=== PATIENT | female | born 1990 | race American Indian/Alaskan Native ===

== ENCOUNTER 2018-05-27 05:41 | Inpatient (IN) | payer OTHER ==
[2018-05-27] MEDS ORDERED: AMPICILLIN/NS 2 GM/100 ML 2 GM/100 ML BAG IV ONE ×2 (06:52→06:53)
[2018-05-27] MEDS ORDERED: BRETHINE SUB-Q PRN (06:53)
[2018-05-27] MEDS ORDERED: SUBLIMAZE IV PRN (06:53)
[2018-05-27] MEDS ORDERED: MINERAL OIL PO PRN (06:53)
[2018-05-27] MEDS ORDERED: XYLOCAINE 2% INFILTRATI ONE ×3 (06:53→18:44)
[2018-05-27] MEDS ORDERED: BRETHINE IVP PRN (06:53)
[2018-05-27] MEDS ORDERED: LACTATED RINGERS 1,000 ML IV SCH ×3 (07:00→08:00)
[2018-05-27] MEDS ORDERED: PITOCin/NS 20 UNIT/1000ML DRIP 20 UNITS/1,000 ML BAG IV SCH (07:00)
[2018-05-27] MEDS ORDERED: STADOL IV PRN (07:37)
[2018-05-27] MEDS ORDERED: PITOCin/NS 30 UNIT/500ML 30 UNITS/500 ML BAG IV SCH ×2 (08:00)
[2018-05-27 08:17] LABS: Hemoglobin 10.4 gm/dl (10.1-14.3); Mean Corpuscular HGB Conc 34 % (30-34); Mean Corpuscular Volume 89 fl (79-97); Platelet Count 287 K/mm3 (140-440); Red Blood Count 3.49 M/mm3 (3.65-5.03); Red Cell Distribution Width 14.2 % (13.2-15.2)
--- NOTE | 2018-05-27 08:42 | History and Physical Report ---
History of Present Illness Date of examination: 05/27/18 Date of admission: 05/27/18 Chief complaint: Ctxs & Pressure History of present illness: 27yo G 4 P 1 0 2 1 @ 38 weeks 6 days here with c/o UCs & pelvic pressure since 03:00. She reports +FMs but denies VB or LOF. She is a [facility] patient. No records available. Per pt, her course was significant for new diagnosis of herpes. No history of outbreaks and no prodromal symptoms. She is on valtrex for suppression.. GBS positive. 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 denies: smoking, alcohol abuse, prescription drug abuse, IV drug use - Obstetrical History Expected Date of Delivery: 06/04/18 Actual Gestation: 38 Week(s) 6 Day(s) : 4 Para: 1 Hx # Term Pregnancies: 1 Number of Pregnancies: 0 Spontaneous Abortions: 0 Induced : 2 Number of Living Children: 1 Medications and Allergies Allergies Allergy/AdvReac Type Severity Reaction Status Date / Time No Known Allergies Allergy Verified 05/27/18 06:15 Home Medications Medication Instructions Recorded Confirmed Last Taken Type Vit No.138/Folic/Dha 1 tab PO DAILY 05/27/18 05/27/18 05/26/18 History [Alive Gummy] valACYclovir [Valtrex] 1 tab PO DAILY 05/27/18 05/27/18 05/26/18 History Active Meds: Active Medications Butorphanol Tartrate (Stadol) 1 mg IV Q2H PRN PRN Reason: Pain, Moderate (4-6) Ephedrine Sulfate (Ephedrine Sulfate) 10 mg IV Q2M PRN PRN Reason: Hypotension Fentanyl (Sublimaze) 100 mcg IV Q2H PRN PRN Reason: Labor Pain Ampicillin Sodium (Ampicillin/Ns 1 Gm/50 Ml) 1 gm in 50 mls @ 100 mls/hr IV Q4HR RHONDA; Protocol Oxytocin/Sodium Chloride (Pitocin/Ns 20 Unit/1000ml Drip) 20 units in 1,000 mls @ 125 mls/hr IV DIRECT RHONDA Lactated Ringer's (Lactated Ringers) 1,000 mls @ 125 mls/hr IV DIRECT RHONDA Oxytocin/Sodium Chloride (Pitocin/Ns 30 Unit/500ml) 30 units in 500 mls @ 1 mls/hr IV TITR RHONDA; Protocol Oxytocin/Sodium Chloride (Pitocin/Ns 30 Unit/500ml) 30 units in 500 mls @ 2 mls/hr IV TITR RHONDA; Protocol Mineral Oil (Mineral Oil) 30 ml PO QHS PRN PRN Reason: Constipation Terbutaline Sulfate (Brethine) 0.25 mg SUB-Q ONCE PRN PRN Reason: Hyperstimulation/Hypertonicity Terbutaline Sulfate (Brethine) 0.25 mg IVP ONCE PRN PRN Reason: Hyperstimulation/Hypertonicity Review of Systems All systems: negative - Vital Signs Vital signs: Vital Signs Pulse Pulse Ox 107 H 98 05/27/18 06:05 05/27/18 06:05 Temp Pulse Resp BP Pulse Ox 98.6 F 95 H 20 124/63 99 05/27/18 06:06 05/27/18 07:15 05/27/18 06:06 05/27/18 06:32 05/27/18 07:15 - Obstetrical FHR: auscultation normal, category 1 FHR comments: baseline 130, moderate variability, 15x15 accels, no decels Uterine Contraction Monitor Mode: External Cervical Dilatation: 5.5 (per RN) Cervical Effacement Percentage: 90 (per RN) station: -1 (per RN) Uterine Contraction Frequency (min): 3-7 Uterine Contraction Pattern: Regular Results Result Diagrams: 05/27/18 06:42 Abnormal lab results 05/27/18 Range/Units 06:42 WBC 11.6 H (4.5-11.0) K/mm3 RBC 3.49 L (3.65-5.03) M/mm3 All other labs normal. Assessment and Plan - Patient Problems (1) 38 weeks gestation of Current Visit: Yes Status: Acute (2) Active labor at term Current Visit: Yes Status: Acute Plan to address problem: Admit to L&D with routine labor orders Start ampicillin for GBS prophylaxis AROM/Pitocin for labor augmentation, if indicated Anticipate vaginal delivery
[2018-05-27 10:22] LABS: Hepatitis C Virus Antibody Non-Reactive (NonReactive)
[2018-05-27] MEDS: AMPICILLIN/NS 1 GM/50 ML 1 GM/50 ML BAG IV SCH ×2 (11:26→16:19)
--- NOTE | 2018-05-27 19:18 | Procedure Note ---
OB Delivery Note - Delivery Date of Delivery: 05/27/18 (1820) Surgeon: KEENAN MCHUGH (ANNA) [employer] Detailer: CHARLOTTE ARVIZU (JOSHM) Estimated blood loss: other (450 cc) - Vaginal Delivery position: OA Intrapartum events: none Delivery induction: none Delivery augmentation: rupture of membranes Delivery monitor: external FHT, external uterine Route of delivery: (1820) Delivery placenta: spontaneous (1835) Delivery cord: 3 umbilical vessels Episiotomy: none Delivery laceration: 2nd degree Delivery repair: vicryl (3.[address]) Anesthesia: local Delivery comments: Arrived to room with pt complete and ready to push. Delivered viable male infant without difficulty. Cried spontaneously, and placed on maternal chest. Cord clamped by CNM after 3 mins. Placenta delivered spontaneously, johnathon pt requested to keep placenta, consent signed. Second degree laceration repaired without difficulty. Mother and baby in stable condition. - Infant A at 1 minute: 8 at 5 minutes: 9 Gender: Male (Weight: 3649 gms (8 lbs, 1 oz))
[2018-05-27] MEDS ORDERED: PHENERGAN PO PRN (19:21)
[2018-05-27] MEDS ORDERED: DULCOLAX PR PRN (19:21)
[2018-05-27] MEDS ORDERED: LANSINOH TP PRN (19:21)
[2018-05-27] MEDS ORDERED: TYLENOL PO PRN (19:21)
[2018-05-27] MEDS ORDERED: BENADRYL PO PRN (19:21)
[2018-05-27] MEDS ORDERED: PHENERGAN PR PRN (19:21)
[2018-05-27] MEDS ORDERED: TUCKS PAD TP PRN (19:21)
[2018-05-27] MEDS ORDERED: NORCO 5/325 PO PRN (19:21)
[2018-05-27] MEDS ORDERED: ZOFRAN IV PRN (19:21)
[2018-05-27] MEDS ORDERED: MILK OF MAGNESIA PO PRN (19:21)
[2018-05-27] MEDS ORDERED: DERMOPLAST TP PRN (19:57)
[2018-05-27] MEDS ORDERED: SODIUM CHLORIDE FLUSH SYRINGE 10 ML IV SCH (20:00)
[2018-05-27] MEDS: FEOSOL PO SCH (23:07)
[2018-05-27] MEDS: IBUPROFEN PO SCH (23:08)
[2018-05-28] MEDS: IBUPROFEN PO SCH ×3 (06:34→21:46)
[2018-05-28 07:51] LABS: Hematocrit 20.3 % (30.3-42.9)
--- NOTE | 2018-05-28 09:01 | Progress Note ---
Assessment and Plan - Patient Problems (1) (normal spontaneous vaginal delivery) Onset Date: 05/28/18 Current Visit: Yes Status: Resolved Plan to address problem: A: S/P - PPD #1 Doing well Asymptomatic anemia - stable P: May go home tomorrow. (2) Acute blood loss anemia Onset Date: 05/28/18 Current Visit: Yes Status: Resolved Subjective - Subjective Date of service: 05/28/18 Principal diagnosis: s/p - PPD #1 Interval history: Pt is feeling well without complaints. Bleeding improved. Patient reports: appetite normal, voiding normally, pain well controlled, flatus, ambulating normally, no dizzy ambulation, no nauseated [place]: doing well, nursing well Objective - Vital Signs Latest vital signs: Vital Signs Temp Pulse Resp BP Pulse Ox 05/28/18 07:56 98.3 F 109 H 18 106/45 100 05/28/18 00:15 98.6 F 101 H 18 114/62 100 05/27/18 21:26 97.5 F L 18 97/65 05/27/18 18:59 94 H 113/59 05/27/18 18:40 97.0 F L 05/27/18 18:30 90 114/57 05/27/18 11:51 83 110/60 05/27/18 11:34 98.1 F 16 Intake and Output 05/27/18 05/28/18 05/28/18 22:59 06:59 14:59 Intake Total 360 Balance 360 Intake: Intake, Free Water 360 Other: # Voids Void 1 Estimated Blood Loss 450 - Exam Abdomen: Present: normal appearance, soft Uterus: Present: normal, firm, fundal height below umbilicus Extremities: Present: normal - Labs Labs: Abnormal lab results 05/28/18 Range/Units 07:23 Hgb 7.0 L D (10.1-14.3) gm/dl Hct 20.3 L D (30.3-42.9) % Laboratory Tests 05/27/18 05/27/18 05/27/18 06:42 06:42 06:42 WBC RBC Hgb Hct MCV MCH MCHC RDW Plt Count RPR Nonreactive Hep Bs Antigen Non-reactive Hepatitis C Antibody Non-reactive HIV 1&2 Antibody Rapid HIV P24 Antigen Rubella IgG Antibody Immune Blood Type Antibody Screen 0205/27/18 05/27/18 06:42 06:42 06:42 WBC 11.6 H RBC 3.49 L Hgb 10.4 Hct 31.0 MCV 89 MCH 30 MCHC 34 RDW 14.2 Plt Count 287 RPR Hep Bs Antigen Hepatitis C Antibody HIV 1&2 Antibody Rapid Non react HIV P24 Antigen Non react Rubella IgG Antibody Blood Type O POSITIVE Antibody Screen Negative 05/28/18 07:23 WBC RBC Hgb 7.0 L D Hct 20.3 L D MCV MCH MCHC RDW Plt Count RPR Hep Bs Antigen Hepatitis C Antibody HIV 1&2 Antibody Rapid HIV P24 Antigen Rubella IgG Antibody Blood Type Antibody Screen
[2018-05-28] MEDS: PRENATAL VITAMIN PO SCH (10:53)
--- NOTE | 2018-05-28 11:25 | Discharge Summary ---
Providers - Providers Date of Admission: 05/27/18 19:01 Date of discharge: 05/29/18 Attending physician: PUJA SMITH Primary care physician: PUJA SMITH Hospitalization Reason for admission: active labor, IUP at term Delivery: Episiotomy: none Laceration: none Other procedures: none complications: none Discharge diagnosis: IUP at term delivered [place] baby: male Hospital course: Unremarkable. Condition at discharge: Good Disposition: DC-01 TO HOME OR SELFCARE - Discharge Diagnoses (1) (normal spontaneous vaginal delivery) Status: Resolved (2) Acute blood loss anemia Status: Resolved Plan - Discharge Medications Prescriptions: Ferrous Sulfate [Feosol 325 MG tab] 325 mg PO BID #60 tablet Ibuprofen [Motrin 600 MG tab] 600 mg PO Q6HR #30 tablet Vit No.138/Folic/Dha [Alive Gummy] 1 tab PO DAILY #30 tab.chew - Provider Discharge Summary Activity: routine, no sex for 6 weeks, no heavy lifting 4 weeks, no strenuous exercise Diet: routine Instructions: routine Additional instructions: [] Smoking cessation referral if applicable(refer to patient education folder for contact #) [] Refer to [facility] Booklet Call your doctor immediately for: * Fever > 100.5 * Heavy vaginal bleeding ( >1 pad per hour) * Severe persistent headache * Shortness of breath * Reddened, hot, painful area to leg or breast * Drainage or odor from incision. * Keep incision clean and dry at all times and follow doctor's instructions regarding bathing/showering - Follow up plan Follow up: PUJA SMITH MD [Primary Care Provider] - 6 Weeks
[2018-05-28] MEDS: FEOSOL PO SCH ×2 (13:25→21:46)
[2018-05-29] MEDS: IBUPROFEN PO SCH ×2 (05:55→11:47)
[2018-05-29 11:20] VITALS: BP 106/54
[2018-05-29] MEDS: PRENATAL VITAMIN PO SCH (11:47)
[2018-05-29] MEDS ORDERED: BOOSTRIX IM ONE (12:00)
[2018-05-29] MEDS ORDERED: AFLURIA QUAD 2018-2019 SYRINGE IM ONE (12:00)
== END 2018-05-29 13:30 | disposition home or self-care (01) | DRG 806 ==
LOC: TRG 05:41 → LD 07:33 → TRG 19:01 → OB 21:13
PROVIDERS: ADMIT Obstetrics & Gynecology; ATTEND Obstetrics & Gynecology
PROC: 10E0XZZ Delivery of Products of Conception, External Approach (ICD-10-PCS; principal; 2018-05-27)
PROC: 0KQM0ZZ Repair Perineum Muscle, Open Approach (ICD-10-PCS; 2018-05-27)
PROC: 3E0234Z Introduction of Serum, Toxoid and Vaccine into Muscle, Percutaneous Approach (ICD-10-PCS; 2018-05-29)
DX: O99.824 Streptococcus B carrier state complicating childbirth (principal); O98.32 Other infections with a predominantly sexual mode of transmission complicating childbirth; Z37.0 Single live birth; D62 Acute posthemorrhagic anemia; A60.00 Herpesviral infection of urogenital system, unspecified; O70.1 Second degree perineal laceration during delivery; Z3A.38 38 weeks gestation of pregnancy; Z23 Encounter for immunization; O90.81 Anemia of the puerperium
CPT/HCPCS: 36415; 59025; 85014; 85018; 85027; 86592; 86706; 86762; 86803; 86850; 86900; 86901; 87806; 90686; 90715; 96360; 96361; 96365; 96366; G0378; J0290; J2590; J3010; J7120